=== PATIENT | female | born 1995 | race Caucasian/White ===

== ENCOUNTER 2018-06-02 18:17 | Emergency (ER) | payer OTHER ==
[~2018-06-02] VITALS: Wt 52.4 kg
--- NOTE | 2018-06-02 22:19 | ERD ---
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 Since this happened, she has been having pain along the ulnar aspect of her wrist, which has been worsened by radial deviation, she denies any numbness or tingling, she did not suffer any of abrasions or lacerations. ROS All systems reviewed and are negative except as per history of present illness. Allergies Allergies: Coded Allergies: No Known Allergy (Unverified , 06/02/18) PMhx/Soc Medical and Surgical Hx: pt denies Medical Hx, pt denies Surgical Hx Hx Alcohol Use: No Hx Substance Use: No Hx Tobacco Use: No Smoking Status: Never smoker Physical Exam Vitals Vital Signs Date Temp Pulse Resp B/P (MAP) Pulse Ox O2 O2 Flow FiO2 Time Delivery Rate 06/02/18 98.1 64 18 109/70 100 18:37 (83) Physical Exam Const: No acute distress Head: Atraumatic Eyes: Normal Conjunctiva ENT: Normal External Ears, Nose and Mouth. Neck: Full range of motion. No meningismus. Resp: No respiratory distress Cardio: Regular rate and rhythm, Skin: No petechiae or rashes Back: No midline or flank tenderness Ext: No cyanosis, or edema. Hand -left: Skin: No laceration, or evidence of external trauma Compartments: Soft Sensation: Intact shoulder/pinky/middle finger/thumb web space Bones: Nontender Snuffbox: Nontender Joints: No effusion Wrist: Flex/Ext: Normal Uln/Radial deviation: Normal (patient has no decreased range of motion, but does endorse some pain with radial deviation) Pron/Supination Normal Finger: Flex/Ext: Normal Add/abd: Normal Thumb: Flex/Ext: Normal Opposition: Normal Thumbs up: Normal Neur: Awake and alert Psych: Normal Mood and Affect Procedures/MDM 22-year-old female presents for evaluation of wrist pain, patient with no neuro vascular deficits, x-ray shows no evidence of fracture. Patient likely has a sprain of her ulnar ligament, I do not suspect rupture, I did advise her to use conservative management with rest, ice, compression, and elevation. If her symptoms persisted, I advised her to follow-up with her PMD within 2 weeks, patient agreed to this, at discharge she was in no acute distress. Departure Diagnosis: Primary Impression: Pain in wrist Laterality: unspecified laterality Qualified Codes: M25.539 - Pain in unspecified wrist Additional Impression: Wrist sprain Encounter type: initial encounter Laterality: left Qualified Codes: S63.502A - Unspecified sprain of left wrist, initial encounter Condition: Stable MELISSA RIOJAS MD Jun 02, 2018 22:19
[2018-06-02 22:48] VITALS: BP 103/63; PULSE 62; RESP 16
== END 2018-06-02 22:49 | disposition home or self-care (01) ==
LOC: FTE 18:17
DX: S63.502A Unspecified sprain of left wrist, initial encounter (principal); X50.3XXA Overexertion from repetitive movements, initial encounter; Y92.254 Theater (live) as the place of occurrence of the external cause

== ENCOUNTER 2018-11-04 00:17 | Emergency (ER) | payer SELFPAY ==
[~2018-11-04] VITALS: Ht 152.4 cm; Wt 51.0 kg
[~2018-11-04 00:17] MED LIST: IBUP-1561 PO
[2018-11-04 00:24] VITALS: Ht 152.4 cm; Wt 51.0 kg
[2018-11-04] MEDS ORDERED: LIDOCAINE 1% (MDV) 10 ML INJ INJ STA (00:38)
[2018-11-04] MEDS ORDERED: HYDROCODONE/APAP (5/325) TAB PO ONE (01:00)
[2018-11-04] MEDS ORDERED: LIDOCAINE 1%/EPI 30 ML INJ INJ ONE (01:00)
--- NOTE | 2018-11-04 03:06 | ERD ---
ER Documentation Chief Complaint Chief Complaint ENCOUTER FOR DRAINAGE OF BARTHOLIN CYST HPI This is a 23-year-old female who presents to the ED with complaints of progressively worsening swelling and pain to her left vaginal area x2 days. Patient states she had a history of a Bartholin cyst over 1 month ago that r equired incision and drainage. She states today's symptoms are similar. She has been doing Epson salt baths without any relief of her symptoms. She denies any urinary symptoms, fevers or chills. She is not . ROS All systems reviewed and are negative except as per history of present illness. Medications Home Meds Active Scripts Ibuprofen* (Motrin*) 400 Mg Tab, 400 MG PO Q6H PRN for PAIN AND OR ELEVATED TEMP, #30 TAB Prov:KATIANA WORLEY PA-C 11/04/18 Allergies Allergies: Coded Allergies: No Known Allergy (Unverified , 06/02/18) PMhx/Soc Medical and Surgical Hx: pt denies Medical Hx, pt denies Surgical Hx Hx Alcohol Use: No Hx Substance Use: No Hx Tobacco Use: No Smoking Status: Never smoker Physical Exam Vitals Vital Signs Date Temp Pulse Resp B/P (MAP) Pulse Ox O2 O2 Flow FiO2 Time Delivery Rate 11/04/18 99.1 79 16 109/63 97 00:24 (78) Physical Exam Const: No acute distress Head: Atraumatic Eyes: Normal Conjunctiva ENT: Normal External Ears, Nose and Mouth. Pelvic Exam: Abdomen: Nontender External Genitalia: + Soft, tender and fluctuant mass to the lower left labia majora. No surrounding erythema or edema. Neur: Awake and alert Psych: Normal Mood and Affect Results 24 hrs Current Medications Medications Dose Sig/Hitesh Start Time Status Last (Trade) Ordered Route PRN Stop Time Admin Dose Reason Admin 1 tab ONCE ONCE 11/04/18 DC 11/04/18 Acetaminophen PO 01:00 00:56 / 11/04/18 01:01 Hydrocodone Bitart (Wayne (5/325)) Lidocaine 10 ml ONCE STAT 11/04/18 Cancel HCl INJ 00:38 (Lidocaine 11/04/18 00:39 1% (Mdv) 10 ml) Lidocaine/ 20 ml ONCE ONCE 11/04/18 DC 11/04/18 Epinephrine INJ 01:00 01:03 (Xylocaine 11/04/18 01:01 1%/ Epi (Pf)) Procedures/MDM PROCEDURES: Abscess Incision and Drainage with irrigation by me: Location: + Left lower labia majora Anesthesia: Local 1% Lidocaine Technique: Irrigated. Disrupted loculations w/ instrumentation Packing: None Complications: Neurovascularly intact post procedure 48 hour wound check. Scar minimization instructions given. ED COURSE: The patient was given Wayne The medication was well tolerated and the patient had market improvement in symptoms. The patient remained stable throughout ED course. MEDICAL DECISION MAKING: This is a 23-year-old female who presents with a recurrent Bartholin cyst. Wound was appropriately incised and drained as above, significant amount of pus expressed. Patient felt significant better. There is no evidence of infection and vital signs are normal, therefore no antibiotics were prescribed. No evidence of sepsis or necrotizing fasciitis. Patient was discharged home and told to follow-up with PHYSICAL SCIENCE TEACHER/general surgery for definitive treatment of her Bartholin cysts. Strict return precautions were discussed. PRESCRIPTIONS: Ibuprofen SPECIALIST FOLLOW UP RECOMMENDED: None Patient has been advised to follow up with primary care in 1-2 days. Departure Diagnosis: Primary Impression: Bartholin's gland abscess Condition: Stable Patient Instructions: Bartholin's Cyst (I And D) Referrals: [facility] YOU HAVE RECEIVED A MEDICAL SCREENING EXAM AND THE RESULTS INDICATE THAT YOU DO NOT HAVE A CONDITION THAT REQUIRES URGENT TREATMENT IN THE EMERGENCY DEPARTMENT. FURTHER EVALUATION AND TREATMENT OF YOUR CONDITION CAN WAIT UNTIL YOU ARE SEEN IN YOUR DOCTORS OFFICE WITHIN THE NEXT 1-2 DAYS. IT IS YOUR RESPONSIBILITY TO MAKE AN APPOINTMENT FOR FOLOW-UP CARE. IF YOU HAVE A PRIMARY DOCTOR --you should call your primary doctor and schedule an appointment IF YOU DO NOT HAVE A PRIMARY DOCTOR YOU CAN CALL OUR PHYSICIAN REFERRAL HOTLINE AT IF YOU CAN NOT AFFORD TO SEE A PHYSICIAN YOU CAN CHOSE FROM THE FOLLOWING [facility] [address] [facility] [address] [facility] [address] [facility] [address] [facility] [address] [facility] [address] [facility] [facility] YOU HAVE RECEIVED A MEDICAL SCREENING EXAM AND THE RESULTS INDICATE THAT YOU DO NOT HAVE A CONDITION THAT REQUIRES URGENT TREATMENT IN THE EMERGENCY DEPARTMENT. FURTHER EVALUATION AND TREATMENT OF YOUR CONDITION CAN WAIT UNTIL YOU ARE SEEN IN YOUR DOCTORS OFFICE WITHIN THE NEXT 1-2 DAYS. IT IS YOUR RESPONSIBILITY TO MAKE AN APPOINTMENT FOR FOLOW-UP CARE. IF YOU HAVE A PRIMARY DOCTOR --you should call your primary doctor and schedule and appointment IF YOU DO NOT HAVE A PRIMARY DOCTOR YOU CAN CALL OUR PHYSICIAN REFERRAL HOTLINE AT . IF YOU CAN NOT AFFORD TO SEE A PHYSICIAN YOU CAN CHOSE FROM THE FOLLOWING [facility] INSTITUTIONS: [facility] [address] [place] [address] [facility] [address] [place] [address] [facility] [address] [place] [address] Additional Instructions: Starting tomorrow recommend warm water soaks with Epson salt for about 10 minutes a day. You should see a specialist/general surgeon for treatment for this. Return here for any worsening pain, fevers, drainage or any other concerns. KATIANA WORLEY PA-C Nov 04, 2018 03:02
== END 2018-11-04 02:28 | disposition home or self-care (01) ==
LOC: FTE 00:17
DX: N75.1 Abscess of Bartholin's gland (principal)